=== PATIENT | male | born 1950 | race Caucasian/White ===

== ENCOUNTER → 2016-11-10 | Day surgery (SDC) | payer OTHER ==
[2016-11-08 08:12] VITALS: Ht 175.3 cm; Wt 113.6 kg
[~2016-11-10] VITALS: Ht 175.3 cm; Wt 113.6 kg
[~2016-11-10] MED LIST: LIDOCAINE HCL 2% 2 ML VIAL (20MG/ML) ONE; MIDAZOLAM HCL 1 MG/ML 2ML VIAL ONE; ONDANSETRON INJ 2 MG/ML 2 ML VIAL ONE; PROPOFOL IV EMULSION 10 MG/ML 20 ML VIAL IV ONE; SODIUM CHLORIDE 0.9% 500ML 500 ML IV ONE; [UNRECOGNIZED DRUG - OTHER] PO
--- NOTE | 2016-11-10 13:09 | Endo History and Physical ---
History & Physical Date of Service: Nov 10, 2016. Chief Complaint: screening Referring Physician: Dr. Shayan Merritt History of Present Illness screening colon Past Surgical History Hx Cardiac Surgery: No Hx Internal Defibrillator: No Hx Pacemaker: No Hx Abdominal Surgery: No Hx of Implantable Prosthesis: No Hx Post-Op Nausea and Vomiting: No Hx Cancer Surgery: No Hx Thoracic Surgery: No Hx Orthopedic: Yes (RT HAND SURGERY) Hx Urinary Tract Surgery: No Family History None Social History Smoking Status: Former Smoker Hx Substance Use: No Hx Alcohol Use: No Allergies Coded Allergies: No Known Allergies (Verified , 11/10/16) Current Medications Reported Home Medications Medications Dose Route/Sig Max Daily Dose Days Date Category [Mannatech] 1 Dose PO DAILY 11/08/16 Reported Vital Signs Weight (Kilograms): 113.64 Height (Feet): 5 Height (Inches): 9 Date Time Temp Pulse Resp B/P Pulse Ox O2 Delivery O2 Flow Rate FiO2 11/10/16 12:44 36.6 65 20 179/98 97 Room Air Physical Exam AAO x3 Nl s1s2 Lungs CTA Abd soft NT/ND + BS - CCE Assessment and Plan colonoscopy for screening
--- NOTE | 2016-11-10 13:34 | GI REPORT ---
Procedure Date: 11/10/2016 1:02 PM Procedure: Colonoscopy Indications: Screening for colorectal malignant neoplasm Medicines: Propofol per Anesthesia Complications: No immediate complications. Estimated blood loss: None. Estimated Blood Loss: Estimated blood loss: none. Procedure: Pre-Anesthesia Assessment: - Prior to the procedure, a History and Physical was performed, and patient medications and allergies were reviewed. The patient's tolerance of previous anesthesia was also reviewed. The risks and benefits of the procedure and the sedation options and risks were discussed with the patient. All questions were answered, and informed consent was obtained. Prior Anticoagulants: The patient has taken no previous anticoagulant or antiplatelet agents. ASA Grade Assessment: II - A patient with mild systemic disease. After reviewing the risks and benefits, the patient was deemed in satisfactory condition to undergo the procedure. After I obtained informed consent, the scope was passed under direct vision. Throughout the procedure, the patient's blood pressure, pulse, and oxygen saturations were monitored continuously. The scope was introduced through the anus and advanced to the terminal ileum, with identification of the appendiceal orifice and IC valve. The colonoscopy was performed without difficulty. The patient tolerated the procedure well. The quality of the bowel preparation was good. Findings: The perianal and digital rectal examinations were normal. Pertinent negatives include normal sphincter tone, no palpable rectal lesions and no anal lesion or abnormality was detected. The colon (entire examined portion) appeared normal. The terminal ileum appeared normal. The retroflexed view of the distal rectum and anal verge was normal and showed no anal or rectal abnormalities. Non-bleeding internal hemorrhoids were found during retroflexion. The hemorrhoids were mild. Impression: - The entire examined colon is normal. - The examined portion of the ileum was normal. - The distal rectum and anal verge are normal on retroflexion view. - Non-bleeding internal hemorrhoids. - No specimens collected. Recommendation: - Discharge patient to home (ambulatory). - Resume previous diet. - Continue present medications. - Repeat colonoscopy in 10 years for screening purposes. MD Osvaldo Dominguez MD 11/10/2016 1:35:19 PM This report has been signed electronically. Note Initiated On: 11/10/2016 1:02 PM I attest to the content of the Intraoperative Record and orders documented therein, exceptions below
--- NOTE | 2016-11-10 13:37 | Discharge Instructions ---
Endoscopy Patient Instructions Date / Procedure(s) Performed Nov 10, 2016. Colonoscopy Allergy Information Coded Allergies: No Known Allergies (Verified , 11/10/16) Discharge Date / Findings Nov 10, 2016. int hemorrhoids Medication Instructions Stopped Medication(s): stopped Mannatech Monday Restart Stopped Medication(s): Reported Home Medications Medications Dose Route/Sig Max Daily Dose Days Date Category [Mannatech] 1 Dose PO DAILY 11/08/16 Reported Reported Home Medications Medications Dose Route/Sig Max Daily Dose Days Date Category [Mannatech] 1 Dose PO DAILY 11/08/16 Reported Provider Instructions Activity Restrictions - No exercising or heavy lifting for 24 hours. - Do not drink alcohol the day of the procedure. - Do not drive a car or operate machinery until the day after the procedure. - Do not make any important decisions or sign important papers in 24 hours after the procedure. Following Day: - Return to full activity which may include returning to work/school. Diet Start your diet with liquids and light foods (jello, soup, juice, toast). Then eat your usual diet if not nauseated. Treatment For Common After Affects For mild abdominal pain, bloating, or excessive gas: - Rest - Eat lightly - Lie on right side Follow-Up Information Follow-up with Dr. Shayan Merritt as scheduled Anesthesia Information What You Should Know You have had a procedure that required some medicine to reduce anxiety and discomfort. This treatment is called moderate sedation. After receiving the treatment, you may be sleepy, but you will be able to breathe on your own. The effects of the treatment may last for several hours. Follow these instructions along with Activity/Diet recommendations noted above: * Do NOT do anything where dizziness or clumsiness would be dangerous. * Rest quietly at home today, then you can be up and about tomorrow. * Have a responsible person stay with you the rest of today. * You may have had an I.V. today. If so, you may take the dressing off later today. Recommendations Call your doctor if: * Trouble breathing * Continuous vomiting for more than 24 hours * Temperature above 101 degrees * Severe abdominal pain or bloating * Pain not relieved by pain medicine ordered * There is increased drainage or redness from any incision * A large amount of rectal bleeding greater than 2-3 tablespoons. (If you had a polyp/s removed or have hemorrhoids, a small amount of blood - from the rectum is to be expected.) * You have any unanswered questions or concerns. IN THE EVENT OF A SERIOUS EMERGENCY, GO TO THE NEAREST EMERGENCY ROOM Your discharge instructions were prepared by provider Osvaldo Louise. Patient Instructions Signature Page Antonino Hernandez Patient (or Guardian) Signature/Date: I have read and understand the instructions given to me by my caregivers. Caregiver/RN/Doctor Signature/Date: The above-named patient and/or guardian has received patient instructions on this date. + Original Patient Signature Page (only) stays with chart. Please make copy for patient.
--- NOTE | 2016-11-10 13:43 | Anesthesiology Progress Note ---
Anesthesia Post Op Note Date & Time Nov 10, 2016 at 13:42 Vital Signs Pain Intensity: 0 Vital Signs Past 12 Hours Date Time Temp Pulse Resp B/P Pulse Ox O2 Delivery O2 Flow Rate FiO2 11/10/16 13:32 74 20 118/76 98 Room Air 11/10/16 12:44 36.6 65 20 179/98 97 Room Air Notes Mental Status: alert / awake / arousable, participated in evaluation Pt Amnestic to Procedure: Yes Nausea / Vomiting: adequately controlled Pain: adequately controlled Airway Patency, RR, SpO2: stable & adequate BP & HR: stable & adequate Hydration State: stable & adequate Anesthetic Complications: no major complications apparent
[2016-11-10 14:02] VITALS: BP 135/91; PULSE 58; O2SAT 96
== END | disposition home or self-care (01) ==
LOC: C.GI 12:17
PROVIDERS: ATTEND Internal Medicine Gastroenterology
DX: Z12.11 Encounter for screening for malignant neoplasm of colon (principal); K64.8 Other hemorrhoids; Z87.891 Personal history of nicotine dependence

== ENCOUNTER → 2016-11-14 | Outpatient (CLI) | payer OTHER ==
[~2016-11-14] MED LIST changes: -LIDOCAINE HCL 2% 2 ML VIAL (20MG/ML) ONE; -MIDAZOLAM HCL 1 MG/ML 2ML VIAL ONE; -ONDANSETRON INJ 2 MG/ML 2 ML VIAL ONE; -PROPOFOL IV EMULSION 10 MG/ML 20 ML VIAL IV ONE; -SODIUM CHLORIDE 0.9% 500ML 500 ML IV ONE
--- NOTE | 2016-11-14 10:07 | DIAGNOSTIC IMAGING REPORT ---
ULTRASOUND OF THE ABDOMINAL AORTA CLINICAL HISTORY: Aneurysm screening. COMPARISON STUDY: No priors. TECHNIQUE: Multiple page scale, color Doppler, and spectral Doppler sonograms of the abdominal aorta and iliac arteries are performed. Images are reviewed in the transverse and longitudinal planes. FINDINGS: There is minimal atherosclerotic calcification and irregularity noted throughout the abdominal aorta. The proximal abdominal aorta measures 2.9 x 2.6 cm (AP times transverse), the mid abdominal aorta measures 2.4 x 2.1 cm, and the distal abdominal aorta measures 2.4 x 2.0 cm. The right common iliac artery measures up to 1.4 cm and the left common iliac artery measures up to 1.6 cm. Normal flow and spectral Doppler waveforms are seen within the abdominal aorta. Velocities measure 81 cm/s. IMPRESSION: There is no sonographic evidence of abdominal aortic aneurysm. Electronically signed by: Ochoa Serna M.D. 11/14/2016 10:06 AM Dictated Date/Time: 11/14/2016 10:05 AM
== END | disposition home or self-care (01) ==
LOC: C.ULTRBC 08:55
PROVIDERS: ATTEND Family Medicine
DX: Z13.6 Encounter for screening for cardiovascular disorders (principal)

== ENCOUNTER → 2016-12-12 | Outpatient (CLI) | payer OTHER ==
[2016-12-12 13:57] VITALS: Ht 177.8 cm
[2016-12-12 14:07] VITALS: BP 145/76; PULSE 99
== END | disposition home or self-care (01) ==
LOC: C.NEUR 13:25
PROVIDERS: ATTEND Internal Medicine Pulmonary Disease
DX: G47.33 Obstructive sleep apnea (adult) (pediatric) (principal); R53.83 Other fatigue

== ENCOUNTER → 2016-12-16 | Outpatient (CLI) | payer OTHER ==
[2016-12-16 11:11] LABS: BASO % 0.2 %; BASO ABS # 0.01 K/uL (0-0.2); COMPLETE YES; EOS % 3.1 %; HEMATOCRIT 41.1 % (42-52); LYMPH % 33.9 %; LYMPH ABS # 1.75 K/uL (1.2-3.4); MEAN CORPUSCULAR HEMOGLOBIN 29.1 pg (25-34); MEAN CORPUSCULAR HGB CONC 33.1 g/dl (32-36); MEAN PLATELET VOLUME 10.3 fL (7.4-10.4); NEUT % 51.8 %; PLATELET COUNT 209 K/uL (130-400); RED BLOOD COUNT 4.67 M/uL (4.7-6.1); WHITE BLOOD COUNT 5.16 K/uL (4.8-10.8)
[2016-12-16 11:30] LABS: ESTIMATED AVERAGE GLUCOSE 128 mg/dl; HA1C FLAG Normal (Normal)
[2016-12-16 11:44] LABS: ALT/SGPT 36 U/L (12-78); BLOOD UREA NITROGEN 27 mg/dl (7-18); BUN/CREATININE RATIO 20.8 (10-20); CALCIUM 8.8 mg/dl (8.5-10.1); CARBON DIOXIDE 28 mmol/L (21-32); CHLORIDE 109 mmol/L (98-107); GLUCOSE 100 mg/dl (70-99); POTASSIUM 4.3 mmol/L (3.5-5.1); SODIUM 142 mmol/L (136-145)
[2016-12-16 11:47] LABS: ALB/GLOB RATIO 1.1 (0.9-2); ALKALINE PHOSPHATASE 76 U/L (45-117); AST/SGOT 16 U/L (15-37); PHOSPHORUS 2.8 mg/dl (2.5-4.9)
[2016-12-16 11:48] LABS: URINE PROTIEN/CREAT RATIO 0.1 (0-0.2); URINE TOTAL PROTEIN 15.2 mg/dl (0-11.9)
== END | disposition home or self-care (01) ==
LOC: C.LABBC 08:19
PROVIDERS: ATTEND Family Medicine
DX: N18.3 Chronic kidney disease, stage 3 (moderate) (principal); E11.9 Type 2 diabetes mellitus without complications; Z11.59 Encounter for screening for other viral diseases

== ENCOUNTER → 2017-03-31 | Outpatient (CLI) | payer OTHER ==
[~2017-03-31] VITALS: Ht 175.3 cm; Wt 108.3 kg
[2017-03-31 16:28] VITALS: BP 151/89; PULSE 67; Ht 175.3 cm; Wt 108.3 kg
== END | disposition home or self-care (01) ==
LOC: C.NEUR 13:58
PROVIDERS: ATTEND Physician Assistant
DX: G47.33 Obstructive sleep apnea (adult) (pediatric) (principal)

== ENCOUNTER → 2017-08-09 | Outpatient (CLI) | payer OTHER ==
[2017-08-09 11:10] LABS: BASO % 0.4 %; BASO ABS # 0.02 K/uL (0-0.2); COMPLETE YES; HEMATOCRIT 40.1 % (42-52); IG% 0.2 %; LYMPH % 35.7 %; LYMPH ABS # 1.96 K/uL (1.2-3.4); MEAN CELL VOLUME 89.3 fL (80-100); MEAN CORPUSCULAR HEMOGLOBIN 30.1 pg (25-34); MEAN CORPUSCULAR HGB CONC 33.7 g/dl (32-36); MEAN PLATELET VOLUME 9.9 fL (7.4-10.4); MONO % 11.7 %; PLATELET COUNT 210 K/uL (130-400); RED BLOOD COUNT 4.49 M/uL (4.7-6.1); WHITE BLOOD COUNT 5.49 K/uL (4.8-10.8)
[2017-08-09 11:19] LABS: ESTIMATED AVERAGE GLUCOSE 131 mg/dl; HA1C FLAG Normal (Normal)
[2017-08-09 11:32] LABS: ALT/SGPT 30 U/L (12-78); AST/SGOT 13 U/L (15-37); BLOOD UREA NITROGEN 25 mg/dl (7-18); BUN/CREATININE RATIO 17.7 (10-20); CALCIUM 8.3 mg/dl (8.5-10.1); CARBON DIOXIDE 28 mmol/L (21-32); CHLORIDE 109 mmol/L (98-107); CHOLESTEROL 217 mg/dl (0-200); GLUCOSE 111 mg/dl (70-99); POTASSIUM 3.9 mmol/L (3.5-5.1); SODIUM 142 mmol/L (136-145); TRIGLYCERIDES 402 mg/dl (0-150)
[2017-08-09 11:36] LABS: ALKALINE PHOSPHATASE 68 U/L (45-117); FERRITIN 73.5 ng/ml (8.0-388.0); HDL CHOLESTEROL 43 mg/dl; TOTAL IRON BINDING CAPACITY 323 mcg/dl (250-450)
== END | disposition home or self-care (01) ==
LOC: C.LABBC 07:39
PROVIDERS: ATTEND Nurse Practitioner Adult Health
DX: Z00.00 Encounter for general adult medical examination without abnormal findings (principal); D64.9 Anemia, unspecified; E11.9 Type 2 diabetes mellitus without complications; I10 Essential (primary) hypertension; E78.5 Hyperlipidemia, unspecified

== ENCOUNTER → 2017-09-09 | Outpatient (CLI) | payer OTHER ==
--- NOTE | 2017-09-21 06:10 | CODING QUERY NO DIAGNOSIS ---
TREATMENT RENDERED WITHOUT A DIAGNOSIS Liam HYSTER DRIVER, To promote full compliance with coding requirements relating to patient care, physician participation is requested in all cases of orthopedic coder uncertainty. Please assist us with providing a diagnosis/symptom for the test(s) below: A diagnosis/symptom was not documented on your Order. A valid diagnosis/symptom is required to bill all insurances. Please remember that we are unable to code a diagnosis of rule out, probable, possible, questionable, or suspected. Tests that require a diagnosis: * LDL CHOLESTEROL DIAGNOSIS: * PARATHYROID HORMONE, INTACT DIAGNOSIS: DATE OF SERVICE: 09/09/17 Provider Signature: Date: Thank you Antonino Angulo [facility] Information Management Once completed, please kindly fax back to [phone] For questions please call [phone]
== END | disposition home or self-care (01) ==
LOC: C.LABBC 08:08
PROVIDERS: ATTEND Nurse Practitioner Adult Health
DX: E78.5 Hyperlipidemia, unspecified (principal); E11.22 Type 2 diabetes mellitus with diabetic chronic kidney disease; N18.3 Chronic kidney disease, stage 3 (moderate); E55.9 Vitamin D deficiency, unspecified; D64.9 Anemia, unspecified

== ENCOUNTER → 2017-12-13 | Outpatient (CLI) | payer OTHER ==
[2017-12-13 17:27] LABS: BLOOD UREA NITROGEN 27 mg/dl (7-18); CARBON DIOXIDE 29 mmol/L (21-32); CREATININE 1.38 mg/dl (0.60-1.40); GLUCOSE 82 mg/dl (70-99); POTASSIUM 4.1 mmol/L (3.5-5.1); SODIUM 141 mmol/L (136-145)
== END | disposition home or self-care (01) ==
LOC: C.LABBC 09:49
PROVIDERS: ATTEND Internal Medicine Nephrology
DX: I12.9 Hypertensive chronic kidney disease with stage 1 through stage 4 chronic kidney disease, or unspecified chronic kidney disease (principal); N18.3 Chronic kidney disease, stage 3 (moderate)

== ENCOUNTER → 2018-01-16 | Outpatient (CLI) | payer OTHER ==
[2018-01-16 13:30] LABS: BASO % 0.2 %; BASO ABS # 0.01 K/uL (0-0.2); EOS % 2.9 %; EOS ABS # 0.15 K/uL (0-0.5); IG# 0.01 K/uL (0.00-0.02); LYMPH % 39.1 %; MEAN CELL VOLUME 89.9 fL (80-100); MEAN CORPUSCULAR HEMOGLOBIN 29.2 pg (25-34); MEAN CORPUSCULAR HGB CONC 32.5 g/dl (32-36); MONO % 10.4 %; MONO ABS # 0.53 K/uL (0.11-0.59); NEUT % 47.2 %; NEUT ABS # 2.42 K/uL (1.4-6.5); PLATELET COUNT 193 K/uL (130-400); RED CELL DISTRIBUTION WIDTH CV 14.4 % (11.5-14.5); RED CELL DISTRIBUTION WIDTH SD 47.4 fL (36.4-46.3); WHITE BLOOD COUNT 5.12 K/uL (4.8-10.8)
[2018-01-16 13:57] LABS: HEMOGLOBIN A1C 5.9 % (4.5-5.6)
[2018-01-16 14:14] LABS: ALBUMIN 3.8 gm/dl (3.4-5.0); BLOOD UREA NITROGEN 22 mg/dl (7-18); CALCIUM 8.7 mg/dl (8.5-10.1); CARBON DIOXIDE 28 mmol/L (21-32); CREATININE 1.23 mg/dl (0.60-1.40); GLUCOSE 79 mg/dl (70-99); POTASSIUM 4.2 mmol/L (3.5-5.1); SODIUM 140 mmol/L (136-145)
== END | disposition home or self-care (01) ==
LOC: C.LABBC 11:18
PROVIDERS: ATTEND Nurse Practitioner Adult Health
DX: N18.3 Chronic kidney disease, stage 3 (moderate) (principal); E11.9 Type 2 diabetes mellitus without complications